=== PATIENT | female | born 2000 | race Caucasian/White ===

== ENCOUNTER 2020-08-04 13:50 | Outpatient (CLI) | payer OTHER | END 2020-08-04 15:43 | disposition home or self-care (01) | LOC: D.OPS 13:50 | PROVIDERS: ATTEND Surgery | DX: K21.9 Gastro-esophageal reflux disease without esophagitis (principal) ==

== ENCOUNTER 2020-08-31 05:47 | Day surgery (SDC) | payer OTHER ==
[~2020-08-31] VITALS: Ht 170.2 cm; Wt 54.1 kg
[2020-08-31 06:08] LABS: HEMOGLOBIN 13.1 g/dL (12-16); MCH 30.8 pg (26.0-34.0); MCHC 34.3 g/dL (31.0-37.0); MCV 89.7 fL (80.0-100.0); MEAN PLATELET VOLUME 8.5 fL (7.4-10.4); RBC 4.24 10x6/uL (4.00-5.40); RDW 12.8 % (11.5-14.5); WBC 7.7 10x3/uL (4.8-10.8)
[2020-08-31 06:32] VITALS: BP 114/72; Ht 170.2 cm; Wt 54.1 kg
[2020-08-31 06:38] LABS: HCG URINE NEGATIVE (NEGATIVE)
--- NOTE | 2020-08-31 08:44 | NUR ---
0842 BRO TEACHING WAS DONE PRIOR TO SEDATION AND PROCEDURE. PT'S MONITOR IS ACTIVE. HOB ELEVATED, HAS FRIEND AT SIDE.
--- NOTE | 2020-08-31 08:54 | NUR ---
4006 ROOM CHECK, I ASKED PT. IF SHE REMEMBERED TO HIT HER BUTTON TO INDICATE SHE WAS DRINKING LEMON SUQUAM[place], SHE SAID, SHE ONLY HAD 2 SIPS AND WHEN SHE WAKES UP MORE, SHE WILL REMEMBER.
--- NOTE | 2020-08-31 09:10 | NUR ---
implant singer capsule lot#[id number] ID#[id number]
== END 2020-08-31 09:20 | disposition home or self-care (01) ==
LOC: D.OPS 05:47
PROVIDERS: Anesthesiology; ATTEND Surgery
DX: K21.9 Gastro-esophageal reflux disease without esophagitis (principal); Z53.9 Procedure and treatment not carried out, unspecified reason

== ENCOUNTER 2020-09-16 06:39 | Observation (INO) | payer OTHER ==
[~2020-09-16] VITALS: Ht 170.2 cm; Wt 52.7 kg
--- NOTE | ~2020-09-16 | OP ---
PATIENT NAME: JAMILAH STACY MEDICAL RECORD: [id number] LOCATION:[id number] ADMISSION DATE:09/16/20 SURGEON: EZRA MCCRAY MD DATE OF OPERATION: 09/16/2020 PREOPERATIVE DIAGNOSES: 1. Gastroesophageal reflux disease. 2. Hiatal hernia. POSTOPERATIVE DIAGNOSES: 1. Gastroesophageal reflux disease. 2. Hiatal hernia. PROCEDURE: Laparoscopic Cynthia with hiatal hernia repair. SURGEON: Ezra Mccray MD DESCRIPTION OF PROCEDURE: The patient's abdomen was prepped and draped in sterile fashion. A Veress needle was inserted in the left upper quadrant and the abdomen was insufflated. An 11-mm Visiport trocar was inserted in the midline just above the umbilicus. Under direct visualization, an 11-mm trocar was placed in the left subcostal region. A 5-mm trocar was placed in the epigastrium, a 5-mm trocar was placed in the right lateral subcostal region and a final 5-mm trocar was placed in the left lateral abdomen. The liver was elevated and at this point we were able to see the stomach projecting up through a small hiatal hernia. We began our dissection by taking down the lesser omentum using Harmonic scalpel. We continued this dissection up to the right katherine. We scored the peritoneum of the right katherine and entered the thoracic cavity, taking down the hernia sac. We continued this dissection as far anteriorly and posteriorly as possible. We then approached the greater curvature of the stomach and the upper third of the stomach. Short gastrics were taken down using Harmonic scalpel with care taken not to injure the patient's spleen. We eventually dissected all of this tissue out and had the fundus completely mobile. We then scored the peritoneum at the left katherine and entered the thoracic cavity. Again, we dissected free the hernia sac and eventually dissected all of the surrounding attachments to the distal esophagus and the proximal stomach until the distal esophagus rested easily in the abdominal cavity for at least 2 cm. The patient's vagus nerves were visualized and were maintained throughout the operation. We then reapproximated the esophageal hiatus with interrupted 0 polydiox times 3. The fundus of the stomach was wrapped around the distal esophagus in a 360-degree fashion and sutured into place with interrupted 0 polydiox times 3. The top and the bottom suture incorporated a bite up the esophagus. The wrap appeared to be in good position and did not appear to be too tight. The indwelling OG tube was removed with ease. We irrigated out the abdomen and assured there was no sign of any active bleeding. At this point, an 11-mm trocar site fascias were closed with interrupted 0 Vicryl using a Alex-Dao suture passer device. The liver retractor was removed. The ports and insufflation were then removed. A total of 10 mL of 0.25% Marcaine with epinephrine was infused into the surrounding tissues. The skin incisions were then closed with running subcutaneous 5-0 Monocryl. COMPLICATIONS: None. CONDITION: Stable. OPERATIVE REPORT [id number] JAMILAH STACY ANESTHESIA: General endotracheal and local. BLOOD LOSS: Minimal. TRANSINT:[id number] Voice Confirmation ID: [id number] DOCUMENT ID: [id number] EZRA MCCRAY MD CC: MALVIN FUENTES MD and SHWETA WILDE MD [id number] DICTATION DATE: 09/16/20 1224 TAKE OFF WORKER: 09/16/20 1319 ADM IN [facility] [address] [place] [address]
[~2020-09-16 06:39] MED LIST: OMEPRAZOLE40 MG PO
[2020-09-16 07:08] LABS: BASOPHILS 0.7 % (0-2); HEMOGLOBIN 12.3 g/dL (12-16); LYMPHOCYTES 39.5 % (15-50); MCH 31.1 pg (26.0-34.0); MCHC 34.3 g/dL (31.0-37.0); MCV 90.6 fL (80.0-100.0); MEAN PLATELET VOLUME 8.5 fL (7.4-10.4); MONOCYTES 11.2 % (2-11); NEUTROPHILS 47.6 % (40-80); PLATELET COUNT 221 10x3/uL (130-400); RBC 3.98 10x6/uL (4.00-5.40); RDW 12.7 % (11.5-14.5); WBC 5.8 10x3/uL (4.8-10.8)
[2020-09-16 07:19] LABS: CALC OSMOLALITY 285 mosm/kg (275-300); CARBON DIOXIDE 25.6 mmol/L (21.0-32.0); CHLORIDE - SERUM 109 mmol/L (98-107); CREATININE - SERUM 0.9 mg/dL (0.6-1.3); GLUCOSE 102 mg/dL (74-106); POTASSIUM - SERUM 3.9 mmol/L (3.5-5.1); SODIUM 143 mmol/L (136-145); UREA NITROGEN 14 mg/dL (7-18); eGFR NON AFRICAN AMERICAN 83 mL/min (90-120)
[2020-09-16 07:21] LABS: HCG SERUM NEGATIVE (NEGATIVE)
[2020-09-16 08:10] VITALS: BP 110/65; BMI 18.2
--- NOTE | 2020-09-16 12:40 | NUR ---
OPA IN AIRWAY ON ADMIT
[2020-09-16 13:51] VITALS: BP 116/77
--- NOTE | 2020-09-16 14:00 | NUR ---
TO ROOM 2222 FROM PACU. PATIENT WAKENS INT.SHE IS WITHOUT SIGNS OF PAIN. LAP SITES X5 CDI. SCD'S IN PLACE. IS AT BEDSIDE AND INSTRUCTED.CALL LIGHT IN REACH
[2020-09-16 15:18] VITALS: BP 116/77; Ht 170.2 cm; Wt 52.7 kg
[2020-09-16 20:00] VITALS: BP 115/72
--- NOTE | 2020-09-16 20:00 | NUR ---
PT SITTING UP IN BED WITHOUT DISTRESS, AOX4. GIRLFRIEND AT BEDSIDE. PT NAUSEOUS, ZOFRAN GIVEN. DENIES OTHER NEEDS AT THIS TIME. CL IN REACH
--- NOTE | 2020-09-16 23:00 | NUR ---
PT NAUSEOUS. NOT TIME FOR ZOFRAN YET. CALLED DR BECKMAN, RECIEVED ORDER FOR IM PHENERGAN. GAVE TO PT ORDERED. DENIES OTHER NEEDS. CL IN REACH
[2020-09-17] VITALS: BP 102/50
[2020-09-17 04:00] VITALS: BP 123/72
[2020-09-17 06:51] LABS: BASOPHILS 0.2 % (0-2); EOSINOPHILS 0 % (0-7); HEMATOCRIT 33.2 % (36.0-48.0); HEMOGLOBIN 11.2 g/dL (12-16); LYMPHOCYTES 15.6 % (15-50); MCH 30.9 pg (26.0-34.0); MCHC 33.8 g/dL (31.0-37.0); MCV 91.6 fL (80.0-100.0); MEAN PLATELET VOLUME 9.2 fL (7.4-10.4); MONOCYTES 8.9 % (2-11); NEUTROPHILS 75.3 % (40-80); PLATELET COUNT 194 10x3/uL (130-400); RBC 3.63 10x6/uL (4.00-5.40); RDW 12.5 % (11.5-14.5)
[2020-09-17 06:57] LABS: WBC 11.7 10x3/uL (4.8-10.8)
[2020-09-17 07:14] LABS: CALC OSMOLALITY 277 mosm/kg (275-300); CARBON DIOXIDE 24.1 mmol/L (21.0-32.0); CHLORIDE - SERUM 107 mmol/L (98-107); CREATININE - SERUM 0.7 mg/dL (0.6-1.3); GLUCOSE 90 mg/dL (74-106); POTASSIUM - SERUM 4.2 mmol/L (3.5-5.1); SODIUM 140 mmol/L (136-145); eGFR NON AFRICAN AMERICAN > 90 mL/min (90-120)
[2020-09-17 07:16] LABS: UREA NITROGEN 9 mg/dL (7-18)
--- NOTE | 2020-09-17 08:00 | NUR ---
ALERT AND ORIENTED. ASSESSMENT COMPLETE. DENIES NEEDS. BED LOW. CALL ESQUIVEL AND PERSONAL ITEMS IN REACH. WILL CONTINUE TO MONITOR.
[2020-09-17 09:51] VITALS: BP 111/67
--- NOTE | 2020-09-17 10:58 | NUR ---
DILAUDID SNAKER DC PER ORDER.
[2020-09-17 12:51] VITALS: BP 106/64
[2020-09-17 17:03] VITALS: BP 112/56
[2020-09-17 20:45] VITALS: BP 113/45
--- NOTE | 2020-09-18 03:56 | NUR ---
I have reviewed this patient and I concur with the Shift Assessment completed by the Licensed Practical Nurse today this shift.
--- NOTE | 2020-09-18 03:57 | NUR ---
I have reviewed this patient and I concur with the Shift Assessment completed by the Licensed Practical Nurse today this shift.
--- NOTE | 2020-09-18 07:55 | NUR ---
AAOX4 UPON ENTERING. PRN NORCO FOR LAP SITE PAIN. RESTING IN BED, AIDE IN ROOM OBTAINING VITALS. DENIES ANY NEEDS AT THIS TIME. BED IN LOWEST POSITION, BED RAILS X2, CALL LIGHT WITHIN REACH. WILL CONTINUE POC.
[2020-09-18 09:14] VITALS: BP 102/59
[2020-09-18] MEDS ORDERED: HYDROCODONE-AC1 EAC2 PO (10:13)
[2020-09-18] MEDS ORDERED: REGLAN5 MG PO (10:13)
--- NOTE | 2020-09-18 11:37 | NUR ---
IV REMOVED FROM LEFT AC, CATHETER TIP INTACT. COVERED WITH GAUZE AND TAPE. TOLERATED WELL. DRESSED SELF. WILL BE WHEELCHAIRED OUT, ACCOMPANIED BY SIGNIFICANT OTHER. DENIES FURTHER NEEDS FROM HOSPITAL AND STAFF.
== END 2020-09-18 11:37 | disposition home or self-care (01) ==
LOC: D.OPS 06:39 → D.MS 12:41 → D.OPS 13:52 → D.MS 13:53 → OBSVTIME 13:53 → D.MS 13:53
PROVIDERS: Anesthesiology; ADMIT Surgery; ATTEND Surgery
DX: K21.9 Gastro-esophageal reflux disease without esophagitis (principal); K44.9 Diaphragmatic hernia without obstruction or gangrene